=== PATIENT | male | born 1945 | race Asian ===

== ENCOUNTER 2017-03-05 10:20 | Observation (INO) | payer MEDICARE, MEDICAID ==
[~2017-03-05] VITALS: Ht 172.7 cm; Wt 63.5 kg
[2017-03-05] MEDS ORDERED: LORA0.5T PO (10:54)
[2017-03-05] MEDS ORDERED: TRAM-40 PO (10:54)
[2017-03-05] MEDS ORDERED: MIDO10TA PO (10:55)
[2017-03-05] MEDS ORDERED: TAMS0.4C2 PO (10:55)
[2017-03-05] MEDS ORDERED: ALBU18HF INHALATION (10:55)
[2017-03-05] MEDS ORDERED: ICOS1CAP PO (10:56)
--- NOTE | 2017-03-05 11:04 | ERA ---
ER Documentation Chief Complaint Date/Time DATE: 03/05/17 TIME: 11:03 Chief Complaint DIZZINESS WHILE AT MD OFFICE. 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 He was therefore sent to the ER for further evaluation. He went to see his physician for cough for the last couple days. He denies fever, chills, neck pain, chest pain, dyspnea, abdominal pain, vomiting, dysuria, diarrhea. He has history of throat cancer and had surgery many years ago and is undergoing radiation therapy. He does not smoke or drink Past medical history: BPH, history of throat cancer, orthostatic hypotension ROS All systems reviewed and are negative except as per history of present illness. Medications Home Meds Reported Medications Icosapent Ethyl (VASCEPA) 1 Gm Capsule, 2 GM PO BID, CAP 03/05/17 Midodrine* (Midodrine*) 10 Mg Tablet, 10 MG PO BID, TAB 03/05/17 Albuterol Sulfate* (Ventolin HFA*) 18 Gm Hfa.aer.ad, 2 PUFF INHALATION Q6H Y for WHEEZING AND SOB, #1 INHALER 03/05/17 Tamsulosin Hcl* (Tamsulosin Hcl*) 0.4 Mg Cap.er.24h, 0.4 MG PO HS, CAP 03/05/17 Tramadol Hcl* (Ultram*) 50 Mg Tablet, 50 MG PO Q6H Y for PAIN, TAB 03/05/17 Lorazepam* (Lorazepam*) 0.5 Mg Tablet, 0.5 MG PO HS Y for SLEEP, TAB 03/05/17 Allergies Allergies: Coded Allergies: No Known Allergy (Unverified , 03/05/17) PMhx/Soc Medical and Surgical Hx: pt denies Surgical Hx History of Surgery: Yes (SECURITY AND COMPLIANCE ANALYST shunt, gtube placement) Hx Neurological Disorder: Yes Hx Respiratory Disorders: Yes (COPD, chronic bronchitis, aspiration PNA, atelectasis ) Hx Psychiatric Problems: Yes (anxiety) Hx Miscellaneous Medical Probl: Yes (throat ca, BPH) Hx Alcohol Use: Yes (hx) Hx Substance Use: No Hx Tobacco Use: Yes (quit in December) Smoking Status: Former smoker Physical Exam Vitals Vital Signs Date Time Temp Pulse Resp B/P Pulse Ox O2 Delivery O2 Flow Rate FiO2 5/15/17 11:32 Nasal Cannula 03/05/17 10:29 98.8 79 20 100/69 97 Physical Exam Const: No acute distress. Dehydrated Head: Atraumatic. Eyes: Normal Conjunctiva. ENT: Normal External Ears, Nose and Mouth. Neck: Full range of motion. No meningismus. Resp: Clear to auscultation bilaterally. Cardio: Regular rate and rhythm, no murmurs. Abd: Soft, non distended, normal bowel sounds, non tender. Skin: No petechiae or rashes. Back: No midline or flank tenderness. Ext: No cyanosis, or edema. Neur: Awake and alert. No focal deficit Psych: Normal Mood and Affect. Result Diagram: 03/05/17 1107 03/05/17 1230 Results 24 hrs Laboratory Tests Test 03/05/17 11:07 03/05/17 12:30 White Blood Count 6.710^3/ul Red Blood Count 4.0110^6/ul Hemoglobin 12.7g/dl Hematocrit 38.0% Mean Corpuscular Volume 94.8fl Mean Corpuscular Hemoglobin 31.7pg Mean Corpuscular Hemoglobin Concent 33.4g/dl Red Cell Distribution Width 13.3% Platelet Count 9710^3/UL Mean Platelet Volume 9.5fl Neutrophils % 83.2% Lymphocytes % 10.1% Monocytes % 5.6% Eosinophils % 0.4% Basophils % 0.3% Nucleated Red Blood Cells % 0.0/100WBC Neutrophils # 5.610^3/ul Lymphocytes # 0.710^3/ul Monocytes # 0.410^3/ul Eosinophils # 0.010^3/ul Basophils # 0.010^3/ul Nucleated Red Blood Cells # 0.010^3/ul Differential Comment AUTO w/SCAN Platelet Estimate PLT APPEAR DECREASED Prothrombin Time 13.5Sec Prothrombin Time Ratio 1.1 INR International Normalized Ratio 1.03 Activated Partial Thromboplast Time 32.7Sec Sodium Level 134mmol/L Potassium Level 3.7mmol/L Chloride Level 107mmol/L Carbon Dioxide Level 25mmol/L Anion Gap 6 Blood Urea Nitrogen 18mg/dl Creatinine 0.67mg/dl Glucose Level 96mg/dl Lactic Acid Level 0.7mmol/L Calcium Level 8.3mg/dl Total Bilirubin 1.5mg/dl Direct Bilirubin 0.00mg/dl Indirect Bilirubin 1.5mg/dl Aspartate Amino Transf (AST/SGOT) 23IU/L Alanine Aminotransferase (ALT/SGPT) 35IU/L Alkaline Phosphatase 39IU/L Troponin I < 0.012ng/ml Total Protein 6.1g/dl Albumin 3.2g/dl Globulin 2.90g/dl Albumin/Globulin Ratio 1.10 Current Medications Medications (Trade) Dose Ordered Sig/Hayden Route PRN Reason Start Time Stop Time Status Last Admin Dose Admin Sodium Chloride 1830 ml 1,830 ml BOLUS OVER 2 HOURS STAT IV* 03/05/17 11:07 03/05/17 11:08 DC 03/05/17 11:32 Ceftriaxone Sodium 50 ml @ 100 mls/hr ONCE ONCE IVPB 03/05/17 13:00 03/05/17 13:29 DC 03/05/17 13:00 Azithromycin (Zithromax 500mg/ NS (Pmx)) 250 ml @ 250 mls/hr ONCE ONCE IVPB 03/05/17 13:00 03/05/17 13:59 03/05/17 13:29 Procedures/[place] [address] Radiology Main Line: [phone] DIAGNOSTIC IMAGING REPORT Patient: CHRIS BAZAN : 1945 Age: 71 Sex: M MR #: [id number] DOS: 03/05/17 1107 Ordering MD: JENNIFFER VAZQUEZ MD Location: E/R Room/Bed: PROCEDURE: Chest x-ray CLINICAL INDICATION: Sepsis TECHNIQUE: Chest single view COMPARISON: None FINDINGS: Mild cardiomegaly and atherosclerotic aortic calcification. Pulmonary vessels are normal in caliber. There is increased reticular markings in the left lung base which may represent atelectasis versus evolving pneumonia. Lungs otherwise clear. Costophrenic angles are sharp. There is surgical clips in the left supraclavicular region. The bony thorax is unremarkable. IMPRESSION: 1. Increased reticular markings left lung base may represent atelectasis versus developing pneumonia. Continued follow-up is recommended. 2. Mild cardiomegaly and atherosclerotic aortic calcification. 3. Surgical clips in the left supraclavicular region RPTAT: HH .Camden Presley MD, Date Time Electronically viewed and signed by .Camden Presley MD, on 03/05/2017 11:54 .W/ CC: JENNIFFER VAZQUEZ MD MEDICAL MAKING DECISION: The patient is a 71-year-old male, presenting with acute community-acquired pneumonia. He was treated with normal saline 30 mL/kg IV, Rocephin IV, Zithromax IV with good response The differential diagnoses considered include but are not limited to asthma, COPD, pneumonia, pulmonary embolus, pleural effusion, empyema, electrolyte imbalance Departure Diagnosis: Primary Impression: Pneumonia Additional Impression: Anemia Condition: Stable Comments I discussed the finding with the person physician Dr. Koko Sims at 1:30 PM who asked me to admit the patient under Dr. Low I discussed the patient with Dr. Low who was made aware of the lab, the treatment, the patient condition. The patient is admitted to telemetry at 1:55 PM JENNIFFER VAZQUEZ MD March 05, 2017 11:04
[2017-03-05] MEDS ORDERED: SODIUM CHLORIDE 0.9% 1L BAG IV* STA (11:07)
--- NOTE | 2017-03-05 11:55 | RADRPT ---
PROCEDURE: Chest x-ray CLINICAL INDICATION: Sepsis TECHNIQUE: Chest single view COMPARISON: None FINDINGS: Mild cardiomegaly and atherosclerotic aortic calcification. Pulmonary vessels are normal in caliber . There is increased reticular markings in the left lung base which may represent atelectasis versu s evolving pneumonia. Lungs otherwise clear. Costophrenic angles are sharp. There is surgical cli ps in the left supraclavicular region. The bony thorax is unremarkable. IMPRESSION: 1. Increased reticular markings left lung base may represent atelectasis versus developing pneumoni a. Continued follow-up is recommended. 2. Mild cardiomegaly and atherosclerotic aortic calcification. 3. Surgical clips in the left supraclavicular region RPTAT: HH .Camden Presley MD, Date Time Electronically viewed and signed by .Camden Presley MD, on 03/05/2017 11:54 .W/
[2017-03-05 12:49] LABS: ABNORMAL IP MESSAGE 1; ADD SCAN DIFF NO; BASOPHILS % 0.3 % (0.0-2.0); EOSINOPHILS % 0.4 % (0.0-7.0); HEMOGLOBIN 12.7 g/dl (14.0-18.0); LYMPHOCYTES # 0.7 10^3/ul (0.8-2.9); LYMPHOCYTES % 10.1 % (15.0-51.0); MEAN CORPUSCULAR HEMOGLOBIN 31.7 pg (29.0-33.0); MEAN CORPUSCULAR HGB CONC 33.4 g/dl (32.0-37.0); MEAN CORPUSCULAR VOLUME 94.8 fl (82.0-101.0); MEAN PLATELET VOLUME 9.5 fl (7.4-10.4); MONOCYTE # 0.4 10^3/ul (0.3-0.9); MONOCYTES % 5.6 % (0.0-11.0); NEUTROPHIL # 5.6 10^3/ul (1.6-7.5); NEUTROPHILS % 83.2 % (39.0-77.0); PLATELET COUNT 97 10^3/UL (140-415); RED BLOOD COUNT 4.01 10^6/ul (4.70-6.10); RED CELL DISTRIBUTION WIDTH 13.3 % (11.5-14.5); WHITE BLOOD COUNT 6.7 10^3/ul (4.8-10.8)
[2017-03-05] MEDS ORDERED: CEFTRIAXONE 1 GM/50 ML (PMX) 50 ML IVPB ONE (13:00)
[2017-03-05] MEDS ORDERED: AZITHROMYCIN 500MG/NS (PMX) 250 ML IVPB ONE (13:00)
[2017-03-05 13:05] LABS: INR 1.03; PROTIME 13.5 Sec (12.2-14.2); PT RATIO 1.1
[2017-03-05 13:06] LABS: PARTIAL THROMBOPLASTIN TIME 32.7 Sec (25.0-35.0)
[2017-03-05 13:07] LABS: ALANINE AMINOTRANSFERASE 35 IU/L (13-69); ALBUMIN 3.2 g/dl (3.3-4.9); ALKALINE PHOSPHATASE 39 IU/L (42-121); ANION GAP 6 (8-16); ASPARTATE AMINO TRANSFERASE 23 IU/L (15-46); BILIRUBIN,INDIRECT 1.5 mg/dl (0-1.1); BILIRUBIN,TOTAL 1.5 mg/dl (0.2-1.3); BLOOD UREA NITROGEN 18 mg/dl (7-20); CALCIUM 8.3 mg/dl (8.4-10.2); CARBON DIOXIDE 25 mmol/L (21-31); CHLORIDE 107 mmol/L (97-110); CREATININE 0.67 mg/dl (0.61-1.24); GLUCOSE 96 mg/dl (70-220); POTASSIUM 3.7 mmol/L (3.5-5.1); SODIUM 134 mmol/L (135-144); TOTAL PROTEIN 6.1 g/dl (6.1-8.1)
[2017-03-05 13:21] LABS: PLATELET ESTIMATE PLT APPEAR DECREASED
[2017-03-05 13:22] LABS: TROPONIN-I < 0.012 ng/ml (0.00-0.12)
[2017-03-05 14:43] LABS: ADD UMIC YES; URINE BILIRUBIN (Dip) NEGATIVE (NEGATIVE); URINE BLOOD (Dip) NEGATIVE (NEGATIVE); URINE COLOR LT. YELLOW (YELLOW); URINE GLUCOSE (Dip) NEGATIVE (NEGATIVE); URINE KETONES (Dip) NEGATIVE (NEGATIVE); URINE LEUKOCYTE ESTERASE (Dip) NEGATIVE (NEGATIVE); URINE NITRITE (Dip) NEGATIVE (NEGATIVE); URINE TOTAL PROTEIN (Dip) NEGATIVE (NEGATIVE); URINE UROBILINOGEN (Dip) 0.2 E.U./dL (0.1-1.0)
[2017-03-05 14:48] VITALS: TEMP 98.1
[2017-03-05 14:58] LABS: URINE RBCS NONE SEEN /HPF (0)
[2017-03-05 15:58] VITALS: BP 142/89; PULSE 89; RESP 18
[2017-03-05 16:05] VITALS: Ht 172.7 cm; Wt 63.5 kg
[2017-03-05] MEDS ORDERED: LORAZEPAM 2 MG INJ ONE (16:34)
[2017-03-05 16:37] VITALS: PULSE 89
[2017-03-05] MEDS: LORAZEPAM 2 MG INJ IV PRN ×2 (16:51→22:42)
[2017-03-05] MEDS: ALBUTEROL/IPRATROPIUM (NEB) 3 ML AMP HHN SCH ×2 (16:58→20:09)
[2017-03-05] MEDS ORDERED: CEFTRIAXONE 1 GM/50 ML (PMX) 50 ML IVPB SCH (17:00)
[2017-03-05] MEDS: LEVOFLOXACIN 500 MG TAB GTB SCH (17:32)
[2017-03-05] MEDS: D5-NS + KCL 20 MEQ 1,000 ML IV SCH (17:32)
[2017-03-05] MEDS ORDERED: traMADol 50 MG TAB PO PRN (18:30)
[2017-03-05] MEDS: FAMOTIDINE 20 MG INJ IV SCH (18:30)
[2017-03-05 19:53] VITALS: BP 119/74; RESP 16
[2017-03-05 20:09] VITALS: PULSE 95
[2017-03-05] MEDS ORDERED: NON-FORMULARY/PATIENT OWN MED (Icosapent Ethyl (Vascepa) 2 GM) XX SCH (21:00)
[2017-03-05] MEDS: TAMSULOSIN (SR) 0.4 MG CAP PO SCH (22:20)
[2017-03-05] MEDS: ENOXAPARIN 40 MG/0.4 ML SYG SC SCH (22:29)
[2017-03-06] VITALS (13 sets, daily range): BP systolic 94–197; BP diastolic 55–98; PULSE 75–105; RESP 18
--- NOTE | 2017-03-06 00:42 | HP ---
DATE OF ADMISSION: 03/05/2017 CHIEF COMPLAINT: Dizziness, headache and cough. HISTORY OF PRESENT ILLNESS: The patient is a 71-year-old male with past medical history positive fo r throat cancer, status post radiation and surgery many years ago; BPH; orthostatic hypotension; anx iety; long-term tobacco use. The patient also with history of hyperlipidemia and history of chronic bronchitis. The patient was sent from primary care physician's office for complaints of cough for last couple of days. The patient denies any fever, chills. Denies any nausea, vomiting, diarrhea. Denies any bilateral lower extremity swelling. The patient underwent chest x-ray in the emergency room which revealed increased reticular markings, left lung base, may represent atelectasis versus d eveloping pneumonia; mild cardiomegaly and atherosclerotic aortic calcification; surgical clip in th e left supraclavicular region. The patient was diagnosed with community-acquired pneumonia, was giv en IV fluids and intravenous Rocephin, Zithromax and admitted for further evaluation and management to telemetry floor. PAST SURGICAL HISTORY: Status post surgery for throat cancer in 1999, status post cholecystectomy, status post cardiac stent placement, status post back surgery and also status post CORRECTIVE THERAPY AIDE shunt, status post PEG placement. FAMILY HISTORY: Noncontributory. SOCIAL HISTORY: The patient is a former smoker, quit smoking in December. 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 The patient lives at home with his family. ALLERGIES: NO KNOWN ALLERGIES. HOME MEDICATIONS: Include: 1. Vascepa. 2. Midodrine. 3. Ventolin. 4. Tamsulosin. 5. Ultram. 6. Lorazepam p.r.n. for insomnia. REVIEW OF SYSTEMS: A 12-point review of systems is negative unless what mentioned in HPI. PHYSICAL ASSESSMENT: GENERAL: Well-developed, well-nourished gentleman, currently is awake, alert, nonverbal, however us es writing for communication. VITAL SIGNS: Temperature 98.5, pulse is 89, blood pressure is 142/89, respiratory rate 18, oxygen s aturation 95% on nasal cannula 2 L. HEENT: Head is atraumatic, normocephalic. Pupils equal, round, reactive to light and accommodation . NECK: Supple. No thyromegaly. CHEST: Lungs slightly diminished at the bases, clear in the upper lobes. There are no rhonchi, whe ezes, rales noted. CARDIOVASCULAR: Normal S1, S2. No murmurs, gallops, clicks, rubs noted. ABDOMEN: Flat, soft, nondistended, nontender. G-tube with intact stoma. EXTREMITIES: There is no edema, clubbing, cyanosis. Pulses equal bilaterally 2+. SKIN: There is no rash, petechiae noted. NEUROLOGIC: The patient is awake, alert and oriented x4. No focal deficit noted. Motor strength o f 5/5 in all extremities. LABORATORY DATA ON ADMISSION: CBC: White blood cells 6.7, hemoglobin 12.7, hematocrit 38.0, platel ets 97. Chemistry: Sodium is 134, potassium 3.7, chloride 107, carbon dioxide 25, anion gap 6, BUN 18, creatinine 0.67, glucose 96. Lactic acid 0.7. AST is 23, ALT is 35, alkaline phosphatase 39. Troponin less than 0.012. PT is 13.5, INR is 1.03, APTT is 32.7. ASSESSMENT AND PLAN: 1. Community-acquired pneumonia. Will continue Rocephin and Levaquin. Continue oxygen supplementa tion. 2. Possible chronic obstructive pulmonary disease. Continue breathing treatments and oxygen supple mentation. 3. Benign prostatic hypertrophy. Continue tamsulosin. 4. Dyslipidemia. Continue Vascepa. 5. History of throat cancer. 6. History of orthostatic hypotension. The patient is currently normotensive. Continue to monitor blood pressure on telemetry floor. 7. Anxiety. Continue Ativan p.r.n. for agitation. Will monitor chest x-ray, continue to monitor e lectrolytes. CBC tomorrow. 8. Will continue Lovenox for deep venous thrombosis prophylaxis and Pepcid for peptic ulcer disease prophylaxis. Further recommendations based on clinical course. Plan of care discussed with Dr. Low. Dictated By: NATHALY ORTEGA PAPER SHEETER for DAISY LOW MD SR/NTS Conf#: [id number] DID#: [id number]
[2017-03-06] MEDS: ALBUTEROL/IPRATROPIUM (NEB) 3 ML AMP HHN SCH ×6 (01:00→20:33)
[2017-03-06] MEDS: D5-NS + KCL 20 MEQ 1,000 ML IV SCH ×2 (03:20→13:00)
[2017-03-06] MEDS: LEVOFLOXACIN 500 MG TAB GTB SCH (06:19)
[2017-03-06] MEDS: LORAZEPAM 2 MG INJ IV PRN ×3 (06:21→21:51)
[2017-03-06 07:24] LABS: ADD SCAN DIFF NO
[2017-03-06 07:32] LABS: ABNORMAL IP MESSAGE 1; BASOPHILS % 0.2 % (0.0-2.0); EOSINOPHILS # 0.1 10^3/ul (0.0-0.5); EOSINOPHILS % 1.6 % (0.0-7.0); HEMATOCRIT 38.4 % (42.0-52.0); HEMOGLOBIN 12.4 g/dl (14.0-18.0); LYMPHOCYTES # 0.9 10^3/ul (0.8-2.9); LYMPHOCYTES % 16.8 % (15.0-51.0); MEAN CORPUSCULAR HEMOGLOBIN 31.4 pg (29.0-33.0); MEAN CORPUSCULAR HGB CONC 32.3 g/dl (32.0-37.0); MEAN CORPUSCULAR VOLUME 97.2 fl (82.0-101.0); MEAN PLATELET VOLUME 9.6 fl (7.4-10.4); MONOCYTE # 0.4 10^3/ul (0.3-0.9); MONOCYTES % 8.7 % (0.0-11.0); NEUTROPHIL # 3.7 10^3/ul (1.6-7.5); NEUTROPHILS % 72.5 % (39.0-77.0); PLATELET COUNT 91 10^3/UL (140-415); RED BLOOD COUNT 3.95 10^6/ul (4.70-6.10); RED CELL DISTRIBUTION WIDTH 13.6 % (11.5-14.5); WHITE BLOOD COUNT 5.1 10^3/ul (4.8-10.8)
[2017-03-06 07:51] LABS: CREATININE 0.59 mg/dl (0.61-1.24)
[2017-03-06 07:52] LABS: CALCIUM 7.9 mg/dl (8.4-10.2)
[2017-03-06] MEDS: FAMOTIDINE 20 MG INJ IV SCH (08:06)
[2017-03-06] MEDS: ENOXAPARIN 40 MG/0.4 ML SYG SC SCH ×2 (08:08→21:51)
[2017-03-06] MEDS: [UNRECOGNIZED DRUG - REMARK] XX SCH ×2 (09:00→17:00)
--- NOTE | 2017-03-06 10:48 | RADRPT ---
PROCEDURE: XR Chest AP portable CLINICAL INDICATION: Pneumonia TECHNIQUE: An AP portable radiograph of the chest was submitted. COMPARISON: 03/05/2017 FINDINGS: Support Hardware: None Cardiovascular: The cardiovascular silhouette appears unremarkable except for persistent atheroscler otic change involving the aorta. Lung Velasco: Increasing atelectasis/infiltrate has developed within the left lung base. There has b een interval development of a benson-like density seen in the left mid lung zone compatible with atelec tatic change. Pleural parenchymal scarring is again seen at the pulmonary apices. Pleural Spaces: No pleural fluid accumulation or pneumothorax is evident. Osseous Structures: Mild degenerative spine changes are noted and the osseous elements appear rarefi ed. Soft Tissues: Surgical debra are again seen at the left base of the neck. IMPRESSION: 1. Increasing atelectasis and possibly infiltrate at the medial left lung base with development of discoid atelectasis in the left mid lung zone. Pleural parenchymal scarring is again seen at the pu lmonary apices. 2. Atherosclerotic aorta 3. Surgical debra are again seen at the left base of the neck. Physician Sheryl Date Time Electronically viewed and signed by Physician Sheryl on 03/06/2017 10:48 /
--- NOTE | 2017-03-06 12:55 | CONS ---
Date/Time of Note Date/Time of Note DATE: 03/06/17 TIME: 12:55 Consultation Date/Type/Reason Admit Date/Time March 05, 2017 at 13:55 Date of Consultation: March 06, 2017 Type of Consultation: Pulmonary Reason for Consultation Consultation dictated #[id number] Social History Smoking Status: Former smoker Exam/Review of Systems Vital Signs Vitals Vital Signs Date Time Temp Pulse Resp B/P Pulse Ox O2 Delivery O2 Flow Rate FiO2 03/06/17 12:23 105 03/06/17 11:34 98.4 18 146/83 96 03/06/17 08:24 Nasal Cannula 2.0 03/05/17 17:01 28 Intake and Output 03/05/17 03/05/17 03/06/17 15:00 23:00 07:00 Intake Total 50 ml 200 ml Balance 50 ml 200 ml Results Result Diagram: 03/06/17 0652 03/06/17 0652 Results 24 hrs Laboratory Tests Test 03/05/17 14:30 03/05/17 18:39 03/05/17 20:25 03/06/17 06:52 Urine Color LT. YELLOW Urine Clarity CLOUDY H Urine pH 6.5 Urine Specific [place] <=1.005 L Urine Ketones NEGATIVE Urine Nitrite NEGATIVE Urine Bilirubin NEGATIVE Urine Urobilinogen 0.2 E.U./dL Urine Leukocyte Esterase NEGATIVE Urine Microscopic RBC NONE SEEN Urine Microscopic WBC NONE SEEN Urine Amorphous Urates MANY Urine Hemoglobin NEGATIVE Urine Glucose NEGATIVE Urine Total Protein NEGATIVE Lactic Acid Level 0.8 1.2 White Blood Count 5.1 # Red Blood Count 3.95 L Hemoglobin 12.4 L Hematocrit 38.4 L Mean Corpuscular Volume 97.2 Mean Corpuscular Hemoglobin 31.4 Mean Corpuscular Hemoglobin Concent 32.3 Red Cell Distribution Width 13.6 Platelet Count 91 L Mean Platelet Volume 9.6 Neutrophils % 72.5 Lymphocytes % 16.8 Monocytes % 8.7 Eosinophils % 1.6 Basophils % 0.2 Nucleated Red Blood Cells % 0.0 Neutrophils # 3.7 Lymphocytes # 0.9 Monocytes # 0.4 Eosinophils # 0.1 Basophils # 0.0 Nucleated Red Blood Cells # 0.0 Sodium Level 140 Potassium Level 4.0 Chloride Level 106 Carbon Dioxide Level 28 Anion Gap 10 Blood Urea Nitrogen 11 Creatinine 0.59 L Glucose Level 72 Calcium Level 7.9 L Medications Medications Current Medications Lorazepam (Ativan) 0.5 mg Q6H PRN IV AGITATION Last administered on 03/06/17 12:32; Admin Dose 0.5 MG; Start 03/05/17 at 17:00 Enoxaparin Sodium (Lovenox) 40 mg BID SC Last administered on 03/06/17 08:08; Admin Dose 40 MG; Start 03/05/17 at 21:00 Levofloxacin 500 mg 500 mg DAILY@06 GTB Last administered on 03/06/17 06:19; Admin Dose 500 MG; Start 03/05/17 at 18:00 Ceftriaxone Sodium 50 ml @ 100 mls/hr Q24H IVPB ; Start 03/05/17 at 17:00 Potassium Chloride/Dextrose/ Sod Cl (D5-NS + KCl 20 Meq) 1,000 ml @ 100 mls/hr Q10H IV Last administered on 03/06/17 03:20; Admin Dose 100 MLS/HR; Start at 17:00 Tamsulosin HCl (Flomax) 0.4 mg HS PO Last administered on 03/05/17 22:20; Admin Dose 0.4 MG; Start 03/05/17 at 21:00 Tramadol HCl (Ultram) 50 mg Q6H PRN PO PAIN; Start 03/05/17 at 18:30 Miscellaneous Information 2 gm BID XX ; Start 03/05/17 at 21:00; Status UNV Famotidine (Pepcid Iv) 20 mg DAILY IV Last administered on 03/06/17 08:06; Admin Dose 20 MG; Start 03/05/17 at 18:30 Miscellaneous Information (*Order Clarification Bulletin) MEDICATION REQUIRES CLARIFICATION: Q8H XX ; Start 03/06/17 at 09:00 DARREN OSCAR March 06, 2017 12:55
--- NOTE | 2017-03-06 13:24 | CONS ---
DATE OF ADMISSION: 03/05/2017 DATE OF CONSULTATION: 03/06/2017 TYPE OF CONSULTATION: Pulmonary. REFERRING PHYSICIAN: Dr. Low REASON FOR REFERRAL: Evaluation of pneumonia. HISTORY OF PRESENT ILLNESS: Mr. Flores is a pleasant 71-year-old, oriental gentleman who came into the emergency room yesterday with complaints of cough and chest congestion going on for the last few da ys. Patient denies any fever, any chest pain, any wheezing. Upon evaluation, a chest x-ray was don e which essentially was unremarkable. However, a repeat chest x-ray was done this morning, which is showing left lower lobe infiltrative changes which are either atelectasis versus pneumonia. The carlitos lyn does complain of mild chronic shortness of breath dating back several years. Also complains o f chronic dysphagia on account of throat cancer surgery that was in 1999. The patient has lost some weight over the last few days because of poor appetite, but he denies any night sweats, fever, kelley es any change in his voice. PAST MEDICAL HISTORY: 1. Throat cancer in 1999, status post radiation and surgery. 2. History of tracheostomy with subsequent decannulation. 3. Chronic dysphagia status post G-tube placement. 4. Arthritis. 5. Benign prostatic hypertrophy. 6. History of cholecystectomy. 7. History of coronary artery disease status post PTCA. 8. History of back surgery. 9. CAR CARDER shunt. OUTPATIENT MEDICATIONS: 1. Vascepa. 2. Ventolin. 3. Flomax. 4. Ultram. In the hospital, the patient is gettin. Zithromax 500 mg IV daily. 2. Rocephin 1 gram IV daily. 3. DuoNeb q.4h. p.r.n. 4. Lovenox 40 mg twice a day. 5. Pepcid 20 mg IV daily. 6. Levaquin 500 mg via G-tube daily. 7. Flomax 0.4 mg a day. 8. Tramadol on a p.r.n. basis. ALLERGIES: NONE. SOCIAL HISTORY: The patient has recently quit smoking. No history of alcohol abuse. FAMILY HISTORY: The patient is . He has 3 children. 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 REVIEW OF SYSTEMS: Denies any seizures, headache, visual changes and symptoms, postnasal drip. [place] of chronic dysphagia, unable to eat. Patient also does not drink any liquids. Denies any ch est pain. Complains of coughing and chest congestion and sputum production. Denies any fever, chil ls, hemoptysis, any abdominal pain, nausea, vomiting, any melena or hematochezia. He has lost 6 isidro nds over the last few days. Denies any night sweats, fever, any skin changes. PHYSICAL EXAMINATION: GENERAL: Elderly awake, alert, currently in no distress. VITAL SIGNS: Temperature is 98.4 degrees Fahrenheit, heart rate is 86, blood pressure is 148/83, O2 sat is 96% on 2 liter nasal cannula. HEENT: Supple. NECK: No JVD, no lymphadenopathy, midline trachea, no thyromegaly. Does have a tracheostomy scar. Patient does have radiation changes in the anterior lower neck. Pupils are small bilaterally. The re is a right intraocular lens implant. No thyromegaly. No neck bruits. CHEST: Minimally decreased breath sounds left lower lobe, otherwise clear. HEART: S1, S2 audible, no murmurs, regular rhythm. ABDOMEN: Soft, nontender, nondistended, no organomegaly. G-tube in place. Bowel sounds audible. EXTREMITIES: No peripheral edema. Pulses 1+ bilaterally. There is no clubbing. CENTRAL NERVOUS SYSTEM EXAMINATION: Cranial nerves are grossly intact. There is no motor deficit. IMAGING: Chest x-ray was reviewed from yesterday as well as today. Yesterday's chest x-ray was ess entially clear. X-ray from today showing left lower lobe segmental atelectasis versus infiltrate. LABORATORIES: Labs from yesterday: Urinalysis is negative yesterday. Sodium 140, potassium 4, chl oride 106, bicarbonate 28, glucose of 72, BUN 11, creatinine 0.5. White count 5.1, hemoglobin 12.4, platelet count of 91,000. ASSESSMENT AND PLAN: 1. Patient admitted with left lower lobe pneumonia versus atelectasis. 2. Remote history of laryngeal cancer status post surgery. 3. History of coronary artery disease. 4. History of back surgery. 5. Benign prostatic hypertrophy. RECOMMENDATIONS: Discontinue enteral Levaquin as well as intravenous Rocephin and continue IV Zithr omax. Start the patient on Zosyn 3.375 grams q.8h. The patient possibly could have aspirated. Spencer l do a followup chest x-ray in 48 hours. Dictated By: DARREN PANTOJA/JV Conf#: [id number] DID#: [id number]
[2017-03-06] MEDS ORDERED: CEFEPIME 1GM/50 ML (PMX) 50 ML IVPB SCH (15:00)
--- NOTE | 2017-03-06 16:25 | PN ---
Date/Time of Note Date/Time of Note DATE: 03/06/17 TIME: 16:19 Assessment/Plan VTE Prophylaxis VTE Prophylaxis Intervention: SCD's Lines/Catheters IV Catheter Type (from [facility]): Saline Lock Assessment/Plan Chief Complaint/Hosp Course ASSESSMENT AND PLAN: 1. Community-acquired pneumonia versus aspiration. Continue Zosyn, Dr. Holman is following in pulmonology consultation. 2. Possible chronic obstructive pulmonary disease. Continue breathing treatments and oxygen supplementation. 3. Benign prostatic hypertrophy. Continue tamsulosin. 4. Dyslipidemia. Continue Vascepa. 5. History of throat cancer. 6. History of orthostatic hypotension. The patient is currently normotensive. Continue to monitor blood pressure on telemetry floor. 7. Anxiety. Continue Ativan p.r.n. for agitation. Continue Lovenox for deep venous thrombosis prophylaxis and Pepcid for peptic ulcer disease prophylaxis. Further recommendations based on clinical course. Plan of care discussed with Dr. Low. Problems: Subjective 24 Hr Interval Summary Free Text/Dictation Patient denies fever, comfortable on supplemental oxygen, will restart G-tube feeding. Patient is gets anxious and at times, continue Ativan as needed. Exam/Review of Systems Vital Signs Vitals Vital Signs Date Time Temp Pulse Resp B/P Pulse Ox O2 Delivery O2 Flow Rate FiO2 03/06/17 15:57 98.4 95 18 133/87 100 03/06/17 13:28 Nasal Cannula 2.0 03/05/17 17:01 28 Intake and Output 03/05/17 03/05/17 03/06/17 15:00 23:00 07:00 Intake Total 50 ml 200 ml Balance 50 ml 200 ml Exam GENERAL: Well-developed, well-nourished gentleman, awake alert. HEENT: Head is atraumatic, normocephalic. PERRLA. NECK: Supple. No thyromegaly. CHEST: Lungs slightly diminished at the bases, clear in the upper lobes. There are no rhonchi, wheezes, rales noted. CARDIOVASCULAR: Normal S1, S2. No murmurs, gallops, clicks, rubs noted. ABDOMEN: Flat, soft, nondistended, nontender. G-tube with intact stoma. EXTREMITIES: There is no edema, clubbing, cyanosis. Pulses equal bilaterally 2 +. SKIN: There is no rash, petechiae noted. NEUROLOGIC: The patient is awake, alert and oriented x4. Results Result Diagram: 03/06/17 0652 03/06/17 0652 Results 24 hrs Laboratory Tests Test 03/05/17 18:39 03/05/17 20:25 03/06/17 06:52 Lactic Acid Level 0.8 1.2 White Blood Count 5.1 # Red Blood Count 3.95 L Hemoglobin 12.4 L Hematocrit 38.4 L Mean Corpuscular Volume 97.2 Mean Corpuscular Hemoglobin 31.4 Mean Corpuscular Hemoglobin Concent 32.3 Red Cell Distribution Width 13.6 Platelet Count 91 L Mean Platelet Volume 9.6 Neutrophils % 72.5 Lymphocytes % 16.8 Monocytes % 8.7 Eosinophils % 1.6 Basophils % 0.2 Nucleated Red Blood Cells % 0.0 Neutrophils # 3.7 Lymphocytes # 0.9 Monocytes # 0.4 Eosinophils # 0.1 Basophils # 0.0 Nucleated Red Blood Cells # 0.0 Sodium Level 140 Potassium Level 4.0 Chloride Level 106 Carbon Dioxide Level 28 Anion Gap 10 Blood Urea Nitrogen 11 Creatinine 0.59 L Glucose Level 72 Calcium Level 7.9 L Medications Medications Current Medications Lorazepam (Ativan) 0.5 mg Q6H PRN IV AGITATION Last administered on 03/06/17 12:32; Admin Dose 0.5 MG; Start 03/05/17 at 17:00 Enoxaparin Sodium 40 mg 40 mg BID SC Last administered on 03/06/17 08:08; Admin Dose 40 MG; Start 03/05/17 at 21:00 Potassium Chloride/Dextrose/ Sod Cl (D5-NS + KCl 20 Meq) 1,000 ml @ 100 mls/hr Q10H IV Last administered on 03/06/17 03:20; Admin Dose 100 MLS/HR; Start at 17:00 Tamsulosin HCl (Flomax) 0.4 mg HS PO Last administered on 03/05/17 22:20; Admin Dose 0.4 MG; Start 03/05/17 at 21:00 Tramadol HCl (Ultram) 50 mg Q6H PRN PO PAIN; Start 03/05/17 at 18:30 Miscellaneous Information 2 gm BID XX ; Start 03/05/17 at 21:00; Status UNV Famotidine (Pepcid Iv) 20 mg DAILY IV Last administered on 03/06/17t 08:06; Admin Dose 20 MG; Start 03/05/17 at 18:30 Miscellaneous Information (Vascepa) 2 GM IS NON-FORMULA... Q8H XX ; Start at 09:00 Piperacillin Sod/ Tazobactam Sod (Zosyn 3.375gm/ 100 ml (Pmx)) 100 ml @ 25 mls/ hr TID@02,10,18 IVPB ; Start 03/06/17 at 18:00 NATHALY ORTEGA March 06, 2017 16:25
[2017-03-06] MEDS: PIPER-TAZO 3.375 GM IV (PMX) 100 ML IVPB SCH (17:18)
[2017-03-06] MEDS: TAMSULOSIN (SR) 0.4 MG CAP PO SCH (21:50)
[2017-03-07] MEDS ORDERED: METOPROLOL 25 MG TAB GTB SCH
[2017-03-07 00:29] VITALS: PULSE 117
[2017-03-07] MEDS: D5-NS + KCL 20 MEQ 1,000 ML IV SCH (00:37)
[2017-03-07] MEDS: ALBUTEROL/IPRATROPIUM (NEB) 3 ML AMP HHN SCH (01:00)
[2017-03-07] MEDS: [UNRECOGNIZED DRUG - REMARK] XX SCH (01:00)
[2017-03-07] MEDS: PIPER-TAZO 3.375 GM IV (PMX) 100 ML IVPB SCH (02:00)
--- NOTE | 2017-03-08 06:14 | DS ---
DATE OF ADMISSION: 03/05/2017 DATE OF DISCHARGE: 03/07/2017 The patient left against medical advice on 03/07/2017. FINAL DIAGNOSES: Before the patient left AMA: 1. Community-acquired pneumonia versus aspiration. 2. Possible chronic obstructive pulmonary disease. 3. Benign prostatic hypertrophy. 4. Dyslipidemia. 5. History of throat cancer. 6. History of orthostatic hypertension. 7. Anxiety. 8. Long-term tobacco use. BRIEF HISTORY: The patient is a 71-year-old gentleman with a history of throat cancer, status post radiation and surgery many years ago, anxiety, long-term tobacco use, BPH, hyperlipidemia and chroni c bronchitis. The patient was sent from his primary care physician's office for complaint of a coug h for the last couple of days. The patient underwent a chest x-ray in the emergency room which reve aled increased reticular markings in left lung base, may represent atelectasis versus developing pne umonia, mild cardiomegaly and atherosclerotic aortic calcification, a surgical clip in the left supr aclavicular region. The patient was diagnosed with community-acquired pneumonia and was started on IV antibiotics and admitted for further evaluation and management. HOSPITAL COURSE: The patient was evaluated by Dr. Hanks in pulmonology consultation. The patient w as given Zosyn and continued on breathing treatments. Patient was given Ativan for anxiety. The pa eboni was also started on metoprolol for hypertension; however, the patient left against medical adv ice on 03/07/2017 at 4:46 a.m. Dictated By: NATHALY ORTEGA [employer] TECHNICIAN for DAISY ROBLES MD SR/NTS Conf#: [id number] DID#: [id number]
== END 2017-03-07 04:40 | disposition left against medical advice (07) ==
LOC: E/R 10:20 → TEL 13:55 → INTOOBSV 13:55 → TEL 03-07 02:02
PROVIDERS: ADMIT Internal Medicine; ATTEND Internal Medicine
DX: J18.9 Pneumonia, unspecified organism (principal); N40.0 Benign prostatic hyperplasia without lower urinary tract symptoms; Z87.891 Personal history of nicotine dependence; F41.9 Anxiety disorder, unspecified; Z85.818 Personal history of malignant neoplasm of other sites of lip, oral cavity, and pharynx; Z93.1 Gastrostomy status; Z90.49 Acquired absence of other specified parts of digestive tract; I25.10 Atherosclerotic heart disease of native coronary artery without angina pectoris; Z95.5 Presence of coronary angioplasty implant and graft; E78.5 Hyperlipidemia, unspecified
CPT/HCPCS: 71010; 77290; 77334; 80048; 80053; 81001; 83605; 84484; 85025; 85610; 85730; 87040; 87086; 93005; 94640; 94664; 96361; 96365; 96372; 96375; 96376; 99285; G0378; J0456; J0696; J1650; J2060; J2543; J3480; J7030; 81003; 99217; J0692